=== PATIENT | male | born 1975 | race Caucasian/White ===

== ENCOUNTER 2017-11-30 17:17 | Emergency (ER) | payer OTHER ==
[2017-11-30] MEDS ORDERED: ONDANSETRON DISINTEGRATING 4 MG TAB PO ONE (17:31)
[2017-11-30] MEDS ORDERED: NS 1,000 ML IV ONE ×4 (17:31→21:07)
[2017-11-30 17:52] LABS: PLATELET COUNT 178 10^3/uL (150-400)
[2017-11-30] MEDS ORDERED: KETOROLAC 15 MG/1 ML SDV IVP ONE ×2 (17:54→18:23)
[2017-11-30] MEDS ORDERED: PANTOPRAZOLE SODIUM 40 MG VIAL IVP ONE (17:54)
--- NOTE | 2017-11-30 18:18 | EDPHY ---
H & P Stated Complaint: vomiting last days intermittently Time Seen by Provider: 11/30/17 17:25 HPI/ROS: This patient complains of illness over the past 4 and half days. He describes nasal congestion, fevers, myalgias and a dry cough. He developed vomiting last night with multiple episodes since that time. He feels like he is choking on phlegm that is triggering the vomiting be also has some nausea. He was seen in urgent care clinic earlier today and tested positive for influenza B. He was unable to tolerate fluids at home so came in for further workup and treatment. He describes associated burning discomfort in his epigastrium that"feels like acid". ROS: Constitutional: Positive fatigue, fevers and chills HEENT: He has a sore throat that he attributes to vomiting-moderate intensity started today. No ear pain. Neuro: He reports moderate generalized headache throbbing in nature onset today. This headache is similar to previous headaches. Pulmonary: He has mild chest pain with a deep breath. He denies any significant shortness of breath. Cardiovascular: He admits some lightheadedness while standing but denies any chest pain at baseline GI: No lower belly pain. No hematemesis. She reports loose stools for the past few days. : No complaints Integumentary: No rash 10 point ROS is otherwise negative. Source: Patient Exam Limitations: No limitations - Medical/Surgical History PMH: Otherwise healthy except for today's diagnosis of influenza B at the urgent care clinic Other PMH: Celiac disease Constitutional: Initial Vital Signs Temperature (C) 38.3 C 11/30/17 17:32 Heart Rate 96 11/30/17 17:32 Respiratory Rate 18 11/30/17 17:32 Blood Pressure 136/78 H 11/30/17 17:32 O2 Sat (%) 97 11/30/17 17:32 O2 Delivery Mode Room Air O2 (L/minute) 2 Allergies/Adverse Reactions: No Known Allergies Allergy (Verified 11/30/17 17:40) Home Medications: Medication Instructions Recorded Albuterol Hfa Anes Only [Proair 2 puffs IH Q4 PRN #1 mdi 11/30/17 Hfa Icu (*)] Medical Decision Making - Diagnostics EKG Interpretation: 12 lead EKG performed at 8:15 p.m. Reveals sinus rhythm at 97 Intervals: Normal throughout [place]: Normal throughout ST segments: Normal throughout Overall assessment: Normal EKG Imaging Results: Imaging Impressions Chest X-Ray 11/30/17 17:55 Impression: Prominent lower lobe peribronchial markings, which could be infectious or inflammatory. No discrete pneumonia. Two view chest x-ray: Viral pneumonitis by my interpretation. Imaging: I viewed and interpreted images myself ED Course/Re-evaluation: Studies: CBC with minimal elevation of his white blood cell count 9.7 with increased neutrophils. Hematocrit normal. Platelets normal. Basic metabolic panel is normal. Flu B test was positive earlier today at [facility]gent [facility]. IV normal saline bolus Despite 2 L normal saline bolus the patient remained orthostatic. He is given 1 /3 L and still remains orthostatic with a pulse the goes above 120 and inability to stand upright without feeling significantly lightheaded. Given associated chest discomfort that he attributes to chest congestion, EKG is performed which is normal as per reading above by my interpretation. Venous lactate was added on and is normal. He is given a DuoNeb for cough with hypoxia without improvement in his O2 sat which is 80% on room air at this point. He sats in the low 90s on 2 L nasal cannula. Zofran 8 mg ODT with resolution of nausea Protonix 40 mg IV an Toradol 15 mg IV with improvement-resolution of nausea and fever also came down. Complaint of ongoing throat pain treated with MDX solution with improvement Discussion: Patient with influenza B complicated by vomiting, dehydration and ongoing orthostasis despite aggressive fluid hydration along with ongoing hypoxia despite DuoNeb. His labs show no significant abnormalities with minimal increase and white count and normal venous lactate electrolytes. Similarly his EKG is normal. Chest x-ray reveals no focal infiltrates. However given the hypoxia ongoing orthostasis he warrants observation admission. I counseled patient regarding this. I also spoke with the girlfriend who is a physician-research neuropsychologist who agrees with the plan. I answered all the patient's questions prior to transfer. They requested [facility] due to proximity to their home. I spoke with Dr. Coker, hospitalist at [facility] who accepts the patient for admission to a [facility] bed for observation. - Data Points Laboratory Results: Laboratory Results 11/30/17 17:45 11/30/17 17:45 11/30/17 11/30/17 11/30/17 20:25 17:45 17:45 WBC 9.66 10^3/uL H 10^3/uL (3.80-9.50) RBC 5.35 10^6/uL 10^6/uL (4.40-6.38) Hgb 16.4 g/dL g/dL (13.7-17.5) Hct 46.7 % % (40.0-51.0) MCV 87.3 fL fL (81.5-99.8) MCH 30.7 pg pg (27.9-34.1) MCHC 35.1 g/dL g/dL (32.4-36.7) RDW 12.5 % % (11.5-15.2) Plt Count 178 10^3/uL 10^3/uL (150-400) MPV 10.5 fL fL (8.7-11.7) Neut % (Auto) 71.8 % % (39.3-74.2) Lymph % (Auto) 17.4 % % (15.0-45.0) [place] % (Auto) 10.2 % % (4.5-13.0) Eos % (Auto) 0.1 % L % (0.6-7.6) Baso % (Auto) 0.2 % L % (0.3-1.7) Nucleat RBC Rel Count 0.0 % % (0.0-0.2) Absolute Neuts (auto) 6.93 10^3/uL H 10^3/uL (1.70-6.50) Absolute Lymphs (auto) 1.68 10^3/uL 10^3/uL (1.00-3.00) Absolute Monos (auto) 0.99 10^3/uL H 10^3/uL (0.30-0.80) Absolute Eos (auto) 0.01 10^3/uL L 10^3/uL (0.03-0.40) Absolute Basos (auto) 0.02 10^3/uL 10^3/uL (0.02-0.10) Absolute Nucleated RBC 0.00 10^3/uL 10^3/uL (0-0.01) Immature Gran % 0.3 % % (0.0-1.1) Immature Gran # 0.03 10^3/uL 10^3/uL (0.00-0.10) VBG Lactic Acid 0.8 mmol/L mmol/L (0.7-2.1) Sodium 138 mEq/L mEq/L (135-145) Potassium 3.7 mEq/L mEq/L (3.5-5.2) Chloride 100 mEq/L mEq/L (97-110) Carbon Dioxide 26 mEq/l mEq/l (22-31) Anion Gap 12 mEq/L mEq/L (8-16) BUN 14 mg/dL mg/dL (7-23) Creatinine 1.1 mg/dL mg/dL (0.7-1.3) Estimated GFR > 60 Glucose 98 mg/dL mg/dL (70-100) Calcium 8.9 mg/dL mg/dL (8.5-10.4) Medications Given: Discontinued Medications Albuterol/Ipratropium (Duoneb) 3 ml IH EDNOW ONE Stop: 11/30/17 18:32 Last Admin: 11/30/17 18:45 Dose: 3 ml Sodium Chloride (Ns) 1,000 mls @ 0 mls/hr IV EDNOW ONE; Wide Open PRN Reason: Protocol Stop: 11/30/17 17:32 Last Admin: 11/30/17 17:43 Dose: 1,000 mls Sodium Chloride (Ns) 1,000 mls @ 0 mls/hr IV ONCE ONE PRN Reason: Wide Open Stop: 11/30/17 18:21 Last Admin: 11/30/17 18:22 Dose: 1,000 mls Sodium Chloride (Ns) 1,000 mls @ 0 mls/hr IV ONCE ONE; Wide Open PRN Reason: Protocol Stop: 11/30/17 19:29 Last Admin: 11/30/17 19:35 Dose: 1,000 mls Ketorolac Tromethamine (Toradol) 15 mg IVP EDNOW ONE Stop: 11/30/17 17:55 Last Admin: 11/30/17 18:12 Dose: 15 mg Ketorolac Tromethamine (Toradol) 15 mg IVP ONCE ONE Stop: 11/30/17 18:24 Last Admin: 11/30/17 18:41 Dose: 15 mg Ondansetron HCl (Zofran Odt) 8 mg PO EDNOW ONE Stop: 11/30/17 17:32 Last Admin: 11/30/17 17:43 Dose: 8 mg Pantoprazole Sodium (Protonix) 40 mg IVP EDNOW ONE Stop: 11/30/17 17:55 Last Admin: 11/30/17 18:12 Dose: 40 mg Departure - Departure Disposition: [facility] Clinical Impression: Influenza B, Dehydration, Hypoxia Vomiting Qualifiers: Vomiting type: unspecified Vomiting Intractability: non-intractable Nausea presence: with nausea Qualified Code(s): R11.2 - Nausea with vomiting, unspecified Condition: Fair Instructions: Influenza (DC), Acute Nausea and Vomiting (ED) Additional Instructions: Diagnosis: 1. Influenza B 2. Vomiting 3. Dehydration Plan: Drink plenty fluids Zofran for nausea or vomiting if needed Ibuprofen and Tylenol for fevers as needed. Light diet until you feel improved Return for any significant worsening despite treatment plan. Referrals: NONE *PRIMARY CARE P,. [Primary Care Provider] - As per Instructions Lo Ba MD [[facility] [place]] - As per Instructions Stand Alone Forms: Work Excuse Prescriptions: Albuterol Hfa Anes Only [Proair Hfa Icu (*)] 2 puffs IH Q4 PRN #1 mdi PRN Reason: Wheezing
[2017-11-30] MEDS ORDERED: IPRATROPIUM/ALBUTEROL 3 ML DEYVIAL IH ONE (18:31)
[2017-11-30] MEDS ORDERED: ONDANSETRON 4MG PREPACK#2 BTL TAKEHOME ONE (19:15)
[2017-11-30 19:17] VITALS: RESP 18
--- NOTE | 2017-11-30 20:17 | CPEKG ---
Heart Rate: 97 RR Interval: 619 P-R Interval: 148 QRSD Interval: 88 QT Interval: 348 QTC Interval: 442 P D Lo: 56 QRS D Lo: 58 T Wave D Lo: 42 EKG Severity - NORMAL ECG - EKG Impression: SINUS RHYTHM Electronically Signed By: Dale Tang 30-Nov-2017 21:42:38
[2017-11-30] MEDS ORDERED: diphenhydrAMINE 12.5 MG/5 ML UDCUP PO ONE (21:08)
[2017-11-30] MEDS ORDERED: LIDOCAINE 2% VISCOUS 15 ML UDCUP PO ONE (21:11)
[2017-11-30] MEDS ORDERED: MAG HYDROX/AL HYDROX/SIMETH 30 ML UDCUP PO ONE (21:12)
[2017-11-30 21:51] VITALS: BP 119/82; PULSE 89; TEMP 99.1; O2SAT 95
[2017-11-30] MEDS ORDERED: ACETAMINOPHEN 325 MG TAB PO ONE (22:13)
== END 2017-11-30 22:24 | disposition short-term general hospital (02) ==
LOC: CED 17:17
DX: J10.1 Influenza due to other identified influenza virus with other respiratory manifestations (principal); E86.0 Dehydration; R09.02 Hypoxemia; E86.9 Volume depletion, unspecified
CPT/HCPCS: 71046-PO; 80048-PO; 83605-PO; 85025-PO; 96374; J1885

== ENCOUNTER → 2017-12-22 | Outpatient (CLI) | payer OTHER | LOC: CIMAGING 11:57 | PROVIDERS: ATTEND Family Medicine | DX: R06.02 Shortness of breath (principal) | CPT/HCPCS: 71046-PO ==